=== PATIENT | male | born 1955 | race Caucasian/White ===

== ENCOUNTER 2023-10-07 09:34 | Outpatient (CLI) | payer MEDICARE ==
[2023-10-07 10:38] LABS: #Basophils 0.05 10x3/uL (0.0-0.2); #Eosinphils 0.08 10x3/uL (0.0-0.5); #Monocytes 0.52 10x3/uL (0.0-1.1); #Neutrophils 3.25 10x3/uL (1.5-8.4); %Basophils 0.8 % (0.0-2.0); %Eosinophils 1.3 % (0.0-6.0); %Lymphocytes 34.5 % (18.0-47.0); %Monocytes 8.7 % (0.0-10.0); %Neutrophils 54.5 % (40.0-75.0); Hematocrit 42.7 % (38.8-50.0); Hemoglobin 14.7 g/dL (13.5-17.5); Mean Corpuscular HGB CONC 34.4 g/dL (32.0-36.0); Mean Corpuscular Hemoglobin 30.7 pg (27.0-33.0); Mean Corpuscular Volume 89.1 fl (81.2-95.1); Mean Platelet Volume 10.3 fl (7.4-10.4); Platelet Count 210 10x3/uL (150-450); RBC Distribution Width 12.4 % (11.5-14.5); Red Blood Cell (RBC) Count 4.79 10x6/uL (4.32-5.72)
[2023-10-07 10:52] LABS: ALT (SGPT) 16 U/L (8-55); AST (SGOT) 22 U/L (5-34); Albumin 3.9 g/dL (3.4-4.8); Alkaline Phosphatase 50 U/L (40-110); Anion Gap 12 mmol/L (10-20); BUN (Urea Nitrogen) 19 mg/dL (8.4-25.7); Bilirubin, Total 0.9 mg/dL (0.2-1.2); Calc. Creatinine Clearance 0 mL/min (70-130); Calcium 9.4 mg/dL (7.8-10.44); Carbon Dioxide 30 mmol/L (23-31); Chloride 102 mmol/L (98-107); Estimated GFR 53; Globulin 2.8 g/dL (2.4-3.5); Glucose 113 mg/dL (80-115); Potassium 4.1 mmol/L (3.5-5.1); Protein, Total 6.7 g/dL (5.8-8.1); Sodium 140 mmol/L (136-145)
== END 2023-10-07 09:35 | disposition home or self-care (01) ==
LOC: LABBT 09:34
PROVIDERS: ATTEND Surgery
DX: Z01.818 Encounter for other preprocedural examination (principal); K40.90 Unilateral inguinal hernia, without obstruction or gangrene, not specified as recurrent
CPT/HCPCS: 80053; 85025; 93005; 93010

== ENCOUNTER 2023-10-09 08:48 | Day surgery (SDC) | payer MEDICARE ==
[2023-10-07 09:54] VITALS: BMI 23.4
[2023-10-09] MEDS ORDERED: PROPOFOL 20 ML ONE (10:14)
[2023-10-09] MEDS ORDERED: fentaNYL PF 100 MCG/2 ML SYRINGE ONE (10:14)
[2023-10-09] MEDS ORDERED: Lidocaine 1% PF 5 ML VIAL ONE (10:15)
[2023-10-09] MEDS ORDERED: Sodium Chloride 0.9% 100 ML ONE (10:22)
[2023-10-09] MEDS ORDERED: Lidocaine 1% MPF 2 ML VIAL ONE (10:22)
[2023-10-09] MEDS ORDERED: CEFAZOLIN 2 GM VIAL ONE (10:22)
[2023-10-09] MEDS ORDERED: EPINEPHrine 1 MG/ML VIAL ONE (11:15)
[2023-10-09] MEDS ORDERED: Bupivacaine 0.25% HCL 30 ML VIAL ONE (11:15)
[2023-10-09] MEDS ORDERED: Dexamethasone 4 mg/ml Vial ONE (11:43)
[2023-10-09] MEDS ORDERED: ePHEDrine Sulfate 50 MG/10 ML VIAL ONE (11:43)
[2023-10-09] MEDS ORDERED: Ondansetron PF 4 MG/2 ML Vial ONE (11:43)
[2023-10-09] MEDS ORDERED: HYDROcodone/Acetaminophen 5/325 mg Tablet ONE ×2 (13:30→13:34)
== END 2023-10-09 14:05 | disposition home or self-care (01) ==
LOC: SDC 08:48
PROVIDERS: ATTEND Surgery
PROC: 0YU60JZ Supplement Left Inguinal Region with Synthetic Substitute, Open Approach (ICD-10-PCS; principal; 2023-10-09)
DX: K40.90 Unilateral inguinal hernia, without obstruction or gangrene, not specified as recurrent (principal); Z79.899 Other long term (current) drug therapy
CPT/HCPCS: 49505; A6258; C1781; J0171; J0665; J1100; J2405; J2704; J3490